=== PATIENT | female | born 1990 | race Caucasian/White ===

== ENCOUNTER 2019-02-08 08:40 | Inpatient (IN) ==
--- OUTSIDE RECORDS SUMMARY | 2019-02-08 09:53 | External Medical Summary | Continuity of Care Document ---
:1990 Author Name Jany Shetty Address Unavailable Unavailable , Care Team Providers Name Role Phone Unavailable Unavailable Unavailable Erick DIXON Unavailable [email or web address] PCP, NO Unavailable Unavailable Unavailable Unavailable Unavailable Problems UTI (urinary tract infection) (599.0) (N39.0) Pyelonephritis (590.80) (N12) Calculus of kidney (592.0) (N20.0) Pap Smear (+) Low Grade Squamous Intraepithelial Lesion (795 .03) Hirsutism (704.1) (L68.0) Pre-conception counseling (V26.49) (Z31.69) Abnormal menses (626.9) (N92.6) Encounter for routine pelvic examination (V72.31) (Z01.419) Allergies and Adverse Reactions No Known Drug Allergies (Allergy) Medications Oxycodone-Acetaminophen Diogenes LOVELL Refills: 0 Sulfamethoxazole-TMP DS 800-160 MG TABS; TAKE 1 TABLET TWICE DAILY. ZACK Suarez Start: 18-Apr-2015 Quantity: 20 Refills: 0 Procedures Pre-conception counseling Immunizations Immunizations not documented Family History Mother Family history of Thyroid Disorder (V18.19) Status: Active Family history of Cervical Cancer Status: Active Grandmother Family history of Uterine Cancer (V16.49) Status: Active Social History - Smoking Status Smoker. current status unknown Current every day smoker Plan of Treatment Planned Observations Planned Goals not documented Results No Known Results Results not documented
[2019-02-08] MEDS ORDERED: OXYTOCIN 30 UNITS/500 ML BAG IV PRN (10:10)
[2019-02-08] MEDS ORDERED: miSOPROStol 25 MCG TAB PV ONE (10:27)
[2019-02-08 10:35] LABS: Hematocrit (blood only) 34.6 % (37-47); Hemoglobin 12.2 g/dL (12.0-16.0); Mean Corpuscular Volume 85.4 fL (80-100); Mean Platelet Volume 10.3 fL (7.4-10.4); Platelet Count 182 K/uL (130-400); RDW Coefficient of Variation 14.1 % (11.5-14.5); RDW Standard Deviation 43.6 fL (36.4-46.3); Red Blood Count 4.05 M/uL (4.2-5.4); White Blood Count 9.34 K/uL (4.8-10.8)
--- NOTE | 2019-02-08 10:36 | Obstetrical Progress Note ---
Date of Service February 08, 2019 Subjective Admit Note 28 F P0000 at 40.6 weeks admitted for induction of labor for post-dates. GBS is negative. FHT Cat 1. course has been uncomplicated. Cervix is finger tip/60/-3/posterior/soft/vertex/intact. EFW 7.5 lbs. Will admit and plan for Cytotec vaginally to ripen cervix. Anticipate normal delivery. Results & Data Vital Signs (Past 12 Hours) Vital Signs Pulse BP 02/08/19 10:07 70 107/61
[2019-02-08 10:43] LABS: Mean Corpuscular Hgb Conc 35.3 g/dL (32-36)
--- NOTE | 2019-02-08 10:54 | Obstetrical Progress Note ---
Date of Service February 08, 2019 Subjective Cytotec 25 mcg placed vaginally FHT Cat 1 Results & Data Vital Signs (Past 12 Hours) Vital Signs Pulse BP 02/08/19 10:07 70 107/61
--- NOTE | 2019-02-08 19:12 | Obstetrical Progress Note ---
Date of Service February 08, 2019 Physical Exam Genitourinary: OB Exam Abdomen: + regular contractions Manual OB Exam: + cervical dilation 2 cm, + cervical effacement 80%, + station -2 and + amniotic fluid clear OB Exam Monitor Tracing: + external FHT monitor used, + external uterine monitor used and + category I SROM on exam with clear fluid Results & Data Vital Signs (Past 12 Hours) Vital Signs Temp Pulse Resp BP 02/08/19 18:54 36.9 C 61 16 115/73 02/08/19 15:51 68 122/74 02/08/19 15:49 36.8 C 68 20 122/74 02/08/19 11:41 36.7 C 20 02/08/19 10:07 70 107/61
[2019-02-08] MEDS: LACTATED RINGER'S 1,000 ML IV PRN (22:47)
[2019-02-08] MEDS ORDERED: BUPIVACAINE 0.25% 30 ML VIAL ONE (23:44)
[2019-02-08] MEDS ORDERED: ePHEDrine sulfate 50 MG/ML AMP ONE (23:44)
[2019-02-08] MEDS ORDERED: fentaNYL citrate 100 MCG/2 ML VIAL ONE (23:44)
[2019-02-08] MEDS ORDERED: fentaNYL 2MCG/ML ROPIV 1.25MG/ML 100 ML BAG EPI ONE (23:45)
[2019-02-08] MEDS ORDERED: ePHEDrine sulfate 50 MG/ML AMP IV PRN (23:46)
[2019-02-08] MEDS ORDERED: NALOXONE HCL 0.4 MG/1 ML VIAL/CARP IV PRN (23:46)
[2019-02-08] MEDS ORDERED: ONDANSETRON INJ 2 MG/ML 2 ML VIAL IV PRN (23:46)
[2019-02-08] MEDS ORDERED: NALOXONE HCL 1 MG in SODIUM CHLORIDE 0.9% 1000ML 1,000 ML IV PRN (23:46)
[2019-02-08] MEDS ORDERED: NALBUPHINE HCL INJ 10 MG/ML AMP IV PRN (23:46)
[2019-02-08] MEDS ORDERED: LACTATED RINGER'S 1,000 ML IV PRN (23:46)
[2019-02-08] MEDS ORDERED: DiphenhydrAMINE HCL 50 MG/ML VIAL IV PRN (23:46)
[2019-02-08] MEDS ORDERED: fentaNYL 2MCG/ML ROPIV 1.25MG/ML 100 ML BAG EPI PRN (23:46)
--- NOTE | 2019-02-08 23:48 | Anesthesiology Consultation ---
Date of Service February 08, 2019 Assessment & Plan (1) Encounter for pre-operative examination: Chart Review Chart Review: Acceptable Risk for Surgery and Patient NOT seen in Pre Admission Testing Consults Requested none History Height/Weight Height: 5 ft 2.5 in Weight: 72.91 kg Allergies Allergy/AdvReac Type Severity Reaction Status Date / Time No Known Allergies Allergy Unverified 04/25/15 07:50 Medications Home Medications Medication Instructions Recorded Confirmed Last Taken vit-iron fum-folic ac 1 tab PO DAILY 02/08/19 02/08/19 02/08/19 [ Vitamin] 0700 Active Medications Generic Name Dose Route Start Last Admin Trade Name Freq PRN Reason Stop Dose Admin Lactated Ringer's 1,000 mls @ 125 mls/hr 02/08/19 10:10 02/08/19 23:05 Lr IV 02/10/19 10:09 999 mls/hr .Q8H PRN Infusion L&D Protocol Protocol Past Medical History none Exercise / Class Metabolic Activity II 4-5 Yardwork/Stairs/Walk up hill Past Surgical History Surgical History H/O lithotripsy Past Anesthesia History No Hx of Anesthesia Complications and No Family Hx of Anesthesia Complications History of PONV No Hx of PONV and No Hx of Motion Sickness Social History Smoking Status: Former smoker Do You Dip or Chew Tobacco: No Hx Alcohol Use: No Hx Substance Use: No Physical Exam Vital Signs Last Vital Signs Temp 36.8 C 02/08/19 23:00 Pulse 66 02/08/19 23:45 Resp 18 02/08/19 23:00 BP 118/72 02/08/19 22:58 Pulse Ox 99 02/08/19 23:45 Testing Laboratory Results 02/08/19 10:25
[2019-02-09] MEDS: LACTATED RINGER'S 1,000 ML IV PRN ×2 (00:13→06:26)
[2019-02-09] MEDS ORDERED: OXYTOCIN 30 UNITS/500 ML BAG IV PRN ×2 (01:54→08:47)
--- NOTE | 2019-02-09 02:00 | Obstetrical Progress Note ---
Date of Service February 09, 2019 Subjective Doing well contractions are spacing out cervix 4-5/80/-1 per nurse check FHT Cat 1 EFW 7.5 lbs. Will start Oxytocin to augment contractions Discussed with patient Results & Data Vital Signs (Past 12 Hours) Vital Signs Temp Pulse Resp BP Pulse Ox 02/09/19 01:55 86 98 02/09/19 01:50 76 86/50 L 97 02/09/19 01:45 77 86/53 L 97 02/09/19 01:42 75 96/55 L 02/09/19 01:40 74 97 02/09/19 01:36 67 92/51 L 02/09/19 01:35 72 97 02/09/19 01:30 71 101/58 L 97 02/09/19 01:25 72 102/53 L 97 02/09/19 01:21 73 94/51 L 02/09/19 01:20 76 96 02/09/19 01:15 73 93/50 L 97 02/09/19 01:10 72 104/55 L 97 02/09/19 01:05 72 100/57 L 97 02/09/19 01:03 69 102/56 L 02/09/19 01:00 36.7 C 69 18 97 02/09/19 00:56 61 119/56 L 02/09/19 00:55 79 98 02/09/19 00:52 67 121/56 L 02/09/19 00:50 69 98 02/09/19 00:45 59 L 116/57 L 99 02/09/19 00:41 67 117/59 L 02/09/19 00:40 65 98 02/09/19 00:35 73 113/58 L 97 02/09/19 00:33 62 112/61 02/09/19 00:31 66 116/68 02/09/19 00:30 66 98 02/09/19 00:29 66 105/58 L 02/09/19 00:27 66 111/53 L 02/09/19 00:25 70 92/55 L 98 02/09/19 00:23 62 92/55 L 02/09/19 00:21 69 99/53 L 02/09/19 00:20 71 18 98 02/09/19 00:19 68 98/52 L 02/09/19 00:17 70 100/53 L 02/09/19 00:15 76 103/53 L 98 02/09/19 00:13 68 96/51 L 02/09/19 00:11 71 105/57 L 02/09/19 00:10 70 99 02/09/19 00:09 73 105/59 L 02/09/19 00:07 68 111/61 02/09/19 00:05 64 100 02/09/19 00:00 65 99 02/08/19 23:55 66 98 02/08/19 23:50 65 99 02/08/19 23:45 66 99 02/08/19 23:40 66 100 02/08/19 23:00 36.8 C 18 02/08/19 22:58 58 L 118/72 02/08/19 20:45 36.8 C 16 02/08/19 18:54 36.9 C 61 16 115/73 02/08/19 15:51 68 122/74 02/08/19 15:49 36.8 C 68 20 122/74
[2019-02-09] MEDS ORDERED: DIPHTHERIA/TETANUS/PERTUSSIS 0.5 ML SYR/VIAL IM ONE (08:47)
[2019-02-09] MEDS ORDERED: ACETAMINOPHEN 325 MG TAB PO PRN (08:47)
[2019-02-09] MEDS ORDERED: BISACODYL 10 MG SUPP PR PRN (08:47)
[2019-02-09] MEDS ORDERED: SUPERCREAM 0.870% 15 GM JAR EXT PRN (08:47)
[2019-02-09] MEDS ORDERED: MEASLES, MUMPS & RUBELLA VIRUS VIAL SQ ONE (08:47)
[2019-02-09] MEDS ORDERED: HYDROCORTISONE ACETATE 25 MG SUPP PR PRN (08:47)
[2019-02-09] MEDS ORDERED: BENZOCAINE 20% AER SPR 82.5 GM CAN EXT PRN (08:47)
--- NOTE | 2019-02-09 08:50 | Procedure Note ---
Vaginal Delivery Summary Date of Service February 09, 2019 Vaginal Delivery Summary Delivery note live female over intact perineum JEIMY with Apgars 8/9 weight pending. Delayed cord clamping followed by cord blood and spontaneous delivery of intact placenta. No tears. EBL 200 ml. Final sponge and instrument count are correct. Mom and baby stable.
[2019-02-09] MEDS ORDERED: NON-FORMULARY MEDICATION (Prenatal Vit-Iron Fum-Folic Ac [Prenatal Vitamin] 1 TAB) PO SCH (09:11)
--- NOTE | 2019-02-09 09:35 | Anesthesia Procedure Note ---
Date of Service February 09, 2019 Anesthesia Post Epidural Note Vital Signs Vital Signs: Temp Pulse Resp BP Pulse Ox 02/09/19 09:21 75 108/58 L 02/09/19 09:06 77 101/67 02/09/19 08:51 78 110/65 02/09/19 08:45 77 97 02/09/19 08:40 81 98 02/09/19 08:35 98 H 97 02/09/19 08:30 130 H 96 02/09/19 08:25 100 H 98 02/09/19 08:24 106 H 137/75 02/09/19 08:23 91 H 90 02/09/19 08:20 118 H 92 02/09/19 08:15 99 H 98 02/09/19 08:10 99 H 99 02/09/19 08:05 76 98 02/09/19 08:00 74 99 02/09/19 07:59 78 91 02/09/19 07:55 81 99 02/09/19 07:54 81 89 L 02/09/19 07:53 74 118/56 L 02/09/19 07:51 74 113/59 L 02/09/19 07:50 74 99 02/09/19 07:47 78 87 L 02/09/19 07:45 81 99 02/09/19 07:40 110 H 100 02/09/19 07:39 73 138/53 L 02/09/19 07:35 96 H 99 02/09/19 07:30 83 99 02/09/19 07:25 74 99 02/09/19 07:23 75 128/70 02/09/19 07:20 84 100 02/09/19 07:15 80 100 02/09/19 07:10 83 100 02/09/19 07:07 67 119/74 02/09/19 07:05 73 99 02/09/19 07:00 75 100 02/09/19 06:55 71 100 02/09/19 06:51 72 118/68 02/09/19 06:50 74 100 02/09/19 06:45 70 100 02/09/19 06:40 79 99 02/09/19 06:37 70 112/64 02/09/19 06:35 78 100 02/09/19 06:30 78 99 02/09/19 06:25 76 99 02/09/19 06:22 101 H 117/80 05 06:20 92 H 100 05 06:15 72 100 05 06:10 69 99 05 06:07 64 107/61 05 06:05 68 100 05 06:00 97.9 F 80 18 98 05 05:55 88 98 02/09/19 05:52 81 103/60 05 05:50 80 98 02/09/19 05:45 73 98 05 05:40 79 98 05 05:38 67 89/61 L 02/09/19 05:35 70 95 05 05:30 81 97 02/09/19 05:25 82 97 05 05:22 70 100/59 L 02/09/19 05:20 73 97 05 05:15 81 97 02/09/19 05:10 79 98 02/09/19 05:06 77 114/56 L 02/09/19 05:05 81 98 02/09/19 05:00 98.1 F 83 18 98 02/09/19 04:55 85 100 02/09/19 04:52 90 103/60 05 04:50 80 99 05 04:45 78 99 05 04:40 83 97 02/09/19 04:36 80 18 100/57 L 02/09/19 04:35 80 97 02/09/19 04:30 75 98 05 04:25 77 99 05 04:22 75 112/60 05 04:20 66 99 05 04:15 77 100 05 04:10 70 99 05 04:06 65 18 111/55 L 02/09/19 04:05 69 100 05 04:00 71 100 02/09/19 03:55 74 99 05 03:52 80 123/56 L 02/09/19 03:50 71 98 05 03:45 80 100 0517 03:40 68 99 05 03:36 77 112/59 L 05/17/19 03:35 82 99 05/19 03:30 76 18 98 02/09/19 03:25 80 99 02/09/19 03:22 65 89/53 L 02/09/19 03:20 66 97 02/09/19 03:15 72 97 02/09/19 03:10 65 97 02/09/19 03:06 64 101/53 L 02/09/19 03:05 64 96 02/09/19 03:00 98.2 F 66 18 98 02/09/19 02:55 70 97 02/09/19 02:51 67 95/50 L 02/09/19 02:50 71 96 02/09/19 02:45 70 97 02/09/19 02:40 70 98 02/09/19 02:37 70 104/55 L 02/09/19 02:35 68 96 02/09/19 02:30 67 18 97 02/09/19 02:25 65 98 02/09/19 02:20 71 91/54 L 98 02/09/19 02:16 69 96/55 L 02/09/19 02:15 85 99 02/09/19 02:11 66 97/54 L 02/09/19 02:10 70 98 02/09/19 02:06 58 L 107/58 L 02/09/19 02:05 58 L 97 02/09/19 02:00 65 18 83/46 L 96 02/09/19 01:59 63 84/42 L 02/09/19 01:58 64 93/42 L 02/09/19 01:55 86 98 02/09/19 01:50 76 86/50 L 97 02/09/19 01:45 77 86/53 L 97 02/09/19 01:42 75 96/55 L 02/09/19 01:40 74 97 02/09/19 01:36 67 92/51 L 02/09/19 01:35 72 97 02/09/19 01:30 71 18 101/58 L 97 02/09/19 01:25 72 102/53 L 97 02/09/19 01:21 73 94/51 L 02/09/19 01:20 76 96 02/09/19 01:15 73 93/50 L 97 02/09/19 01:10 72 104/55 L 97 02/09/19 01:05 72 100/57 L 97 02/09/19 01:03 69 102/56 L 02/09/19 01:00 98.1 F 69 18 97 02/09/19 00:56 61 119/56 L 02/09/19 00:55 79 98 02/09/19 00:52 67 121/56 L 02/09/19 00:50 69 98 02/09/19 00:45 59 L 116/57 L 99 02/09/19 00:41 67 117/59 L 02/09/19 00:40 65 98 02/09/19 00:35 73 113/58 L 97 02/09/19 00:33 62 112/61 02/09/19 00:31 66 116/68 02/09/19 00:30 66 98 02/09/19 00:29 66 105/58 L 02/09/19 00:27 66 111/53 L 02/09/19 00:25 70 92/55 L 98 02/09/19 00:23 62 92/55 L 02/09/19 00:21 69 99/53 L 02/09/19 00:20 71 18 98 02/09/19 00:19 68 98/52 L 02/09/19 00:17 70 100/53 L 02/09/19 00:15 76 103/53 L 98 02/09/19 00:13 68 96/51 L 02/09/19 00:11 71 105/57 L 02/09/19 00:10 70 99 02/09/19 00:09 73 105/59 L 02/09/19 00:07 68 111/61 02/09/19 00:05 64 100 02/09/19 00:00 65 99 02/08/19 23:55 66 98 02/08/19 23:50 65 99 02/08/19 23:45 66 99 02/08/19 23:40 66 100 02/08/19 23:00 98.2 F 18 02/08/19 22:58 58 L 118/72 02/08/19 20:45 98.2 F 16 02/08/19 18:54 98.4 F 61 16 115/73 02/08/19 15:51 68 122/74 02/08/19 15:49 98.2 F 68 20 122/74 02/08/19 11:41 98.1 F 20 02/08/19 10:07 70 107/61 Notes Mental Status: alert / awake / arousable and participated in evaluation Nausea / Vomiting: adequately controlled Pain: adequately controlled Airway Patency, RR, SpO2: stable & adequate BP & HR: stable & adequate Hydration State: stable & adequate Neuraxial Anesthesia: was administered and sensory block is resolving Anesthetic Complications: no major complications apparent and Pt Satisfied with anesthetic care Epidural: Removed without complications and With tip intact
[2019-02-09] MEDS: FERROUS SULFATE 325 MG TAB PO SCH (10:18)
[2019-02-09] MEDS: PRENATAL VITAMIN 1 TAB PO SCH (10:18)
[2019-02-09] MEDS: DOCUSATE SODIUM 100 MG CAP PO SCH ×2 (10:18→19:49)
[2019-02-09] MEDS: IBUPROFEN 600 MG TAB PO PRN ×2 (12:37→19:49)
[2019-02-10] MEDS: IBUPROFEN 600 MG TAB PO PRN ×3 (04:00→22:28)
[2019-02-10 07:09] LABS: Hematocrit (blood only) 33.1 % (37-47); Hemoglobin 11.4 g/dL (12.0-16.0); Mean Corpuscular Hgb Conc 34.4 g/dL (32-36); Mean Platelet Volume 10.7 fL (7.4-10.4); Platelet Count 159 K/uL (130-400); RDW Coefficient of Variation 14.4 % (11.5-14.5); RDW Standard Deviation 44.6 fL (36.4-46.3); Red Blood Count 3.85 M/uL (4.2-5.4); White Blood Count 15.31 K/uL (4.8-10.8)
[2019-02-10] MEDS: DOCUSATE SODIUM 100 MG CAP PO SCH ×2 (08:45→22:27)
[2019-02-10] MEDS: FERROUS SULFATE 325 MG TAB PO SCH (08:45)
[2019-02-10] MEDS: PRENATAL VITAMIN 1 TAB PO SCH (08:45)
--- NOTE | 2019-02-10 10:34 | Obstetrical Progress Note ---
Date of Service February 10, 2019 Subjective doing well passing gas tolerating diet breast feeding well ambulating well Physical Exam Constitutional: WD/WN, vitals as above comfortable abdomen soft and non- tender Fundus firm neg edema neg Jillian's tent d/c in AM Results & Data Vital Signs (Past 12 Hours) Vital Signs Temp Pulse Resp BP 02/10/19 07:25 36.5 C 65 18 107/70 02/09/19 23:30 36.9 C 76 18 109/69
[2019-02-10] MEDS ORDERED: BISACODYL 5 MG TABEC PO SCH (20:00)
[2019-02-11] MEDS: IBUPROFEN 600 MG TAB PO PRN (05:01)
[2019-02-11 06:21] LABS: Hematocrit (blood only) 31.3 % (37-47); Hemoglobin 10.5 g/dL (12.0-16.0)
--- NOTE | 2019-02-11 06:41 | Obstetrical Progress Note ---
Date of Service February 11, 2019 Subjective doing well out of bed ambulating tolerating diet Physical Exam Constitutional: WD/WN, vitals as above comfortable no pain for discharge home follow up in 6 weeks Results & Data Vital Signs (Past 12 Hours) Vital Signs Temp Pulse Resp BP Pulse Ox 02/11/19 00:00 36.8 C 63 16 113/73 98 Laboratory Results Laboratory Results - last 24 hr 02/10/19 02/11/19 06:27 05:55 WBC 15.31 H RBC 3.85 L Hgb 11.4 L 10.5 L Hct 33.1 L 31.3 L MCV 86.0 MCH 29.6 MCHC 34.4 RDW Std Deviation 44.6 RDW Coeff of [place] 14.4 Plt Count 159 MPV 10.7 H
[2019-02-11] MEDS: DOCUSATE SODIUM 100 MG CAP PO SCH (08:41)
[2019-02-11] MEDS: PRENATAL VITAMIN 1 TAB PO SCH (08:41)
[2019-02-11] MEDS: FERROUS SULFATE 325 MG TAB PO SCH (08:41)
[2019-02-11 09:31] VITALS: BP 115/72; PULSE 67; TEMP 97.7; O2SAT 96
== END 2019-02-11 14:07 | disposition home or self-care (01) | DRG 807 ==
LOC: 4S1 09:49 → 4S2 02-09 11:16